=== PATIENT | female | born 1980 | race American Indian/Alaskan Native ===

== ENCOUNTER 2018-10-06 13:36 | Emergency (ER) | payer OTHER ==
--- NOTE | 2018-10-06 13:50 | Event Note ---
ED Screening Note Date of service: 10/06/18 Time: 13:48 ED Screening Note: 38 y/o comes in for swelling of left eye for a year Now has completely close. This initial assessment/diagnostic orders/clinical plan/treatment(s) is/are subject to change based on patients health status, clinical progression and re- assessment by fellow clinical providers in the ED. Further treatment and workup at subsequent clinical providers discretion. Patient/guardian urged not to elope from the ED as their condition may be serious if not clinically assessed and managed. Initial orders include:
[2018-10-06] MEDS ORDERED: BENADRYL PO ONE (17:12)
[2018-10-06] MEDS ORDERED: IBUPROFEN PO ONE (17:12)
--- NOTE | 2018-10-06 17:18 | Emergency Department Report ---
[facility] Chief Complaint: Eye Problems Stated Complaint: LT EYE IRRITAION Time Seen by Provider: 10/06/18 17:11 Duration: 2 Days Side: Left Severity: moderate Symptoms: Yes Eye Itching, Yes Eye Redness, Yes Eye Pain, Yes Purulent Drainage, Yes H/O Allergic Rhinitis, No Blurred Vision, No Contact Lens Use, No Trauma, No Fever, No Headache Other History: family member with pink eye ED Review of Systems ROS: Stated complaint: LT EYE IRRITAION Other details as noted in HPI Constitutional: denies: chills, fever Eyes: eye discharge. denies: eye pain (burning itching ), vision change ENT: denies: ear pain, throat pain Respiratory: denies: cough, shortness of breath, wheezing Cardiovascular: denies: chest pain, palpitations Endocrine: no symptoms reported Gastrointestinal: denies: abdominal pain, nausea, diarrhea Genitourinary: denies: urgency, dysuria, discharge Musculoskeletal: denies: back pain, joint swelling, arthralgia Skin: denies: rash, lesions Neurological: denies: headache, weakness, paresthesias Psychiatric: denies: anxiety, depression Hematological/Lymphatic: denies: easy bleeding, easy bruising ED Past Medical Hx - Past Medical History Previous Medical History?: No - Surgical History Past Surgical History?: Yes Additional Surgical History: C section - Social History Smoking Status: Current Every Day Smoker Substance Use Type: None - Medications Home Medications: Home Medications Medication Instructions Recorded Confirmed Last Taken Type Cetirizine HCl [Zyrtec 10mg tab] 10 mg PO DAILY #30 tablet 10/06/18 Unknown Rx Ciprofloxacin HCl [Ciloxan] 2 drop OS Q3H 10 Days #5 ml 10/06/18 Unknown Rx Ibuprofen [Motrin 800 MG tab] 800 mg PO Q8HR PRN #30 tablet 10/06/18 Unknown Rx [facility] Exam - Exam General: Vital signs noted. No distress. Alert and acting appropriately. Eye Exam: Left Injection, Left Purulent Discharge, Left Photophobia, Both EOMI, Neither Chemosis, Neither Abnormal Pupil, Neither Eye Foreign Body, Neither Lid Foreign Body, Neither Corneal Edema HEENT: No Nasal Congestion, No Pharyngeal Erythema Remainder of HEENT: Normal Lungs: Yes Clear Lung Sounds, No Good Air Exchange, No Wheezes, No Stridor, No Cough, No Nasal Flaring, No Retractions, No Use of Accessory Muscles ED Course Vital Signs 10/06/18 13:51 Temperature 98.8 F Pulse Rate 102 H Respiratory 20 Rate Blood Pressure 134/83 O2 Sat by Pulse 92 Oximetry ED Medical Decision Making - Medical Decision Making this is straight forward conjunctivitis emoi perrla, conjunctivea erythema purulent drainage, visual acuitys 20/40 bilat , no headache no dizziness no trauma plan: cipro ophthal follow up with ophthalmology in 2-3 days return to ed if symptoms worsen. pt verbalized agreement and understanding of discharge plan. Critical care attestation.: If time is entered above; I have spent that time in minutes in the direct care o f this critically ill patient, excluding procedure time. ED Disposition Clinical Impression: Conjunctivitis Qualifiers: Conjunctivitis type: acute Acute conjunctivitis type: bacterial Laterality: left Qualified Code(s): H10.32 - Unspecified acute conjunctivitis, left eye Disposition: DC- TO HOME OR SELFCARE Is pt being admited?: No Does the pt Need Aspirin: No Condition: Stable Instructions: Conjunctivitis (ED) Prescriptions: Ciprofloxacin HCl [Ciloxan] 2 drop OS Q3H 10 Days #5 ml Ibuprofen [Motrin 800 MG tab] 800 mg PO Q8HR PRN #30 tablet PRN Reason: pain Cetirizine HCl [Zyrtec 10mg tab] 10 mg PO DAILY #30 tablet Referrals: JOSE CHAPMAN MD [Primary Care Provider] - 3-5 Days Forms: Work/School Release Form(ED) Time of Disposition: 17:22
[2018-10-06 17:38] VITALS: BP 138/80
== END 2018-10-06 17:40 | disposition home or self-care (01) ==
LOC: ED 13:36
DX: H10.9 Unspecified conjunctivitis (principal); F17.200 Nicotine dependence, unspecified, uncomplicated; Z98.890 Other specified postprocedural states